=== PATIENT | female | born 1965 | race Caucasian/White ===

== ENCOUNTER 2023-07-17 08:53 | Emergency (ER) | payer BC, SELFPAY ==
[2023-07-17 09:06] VITALS: BP 179/113; PULSE 74; RESP 18; TEMP 36.9; O2SAT 98; BMI 30.2
--- NOTE | 2023-07-17 09:11 | DI.RAD.S_ITS ---
PROCEDURE: XR FOREARM LT 2V INDICATIONS: fall TECHNIQUE: 2 views of the forearm were acquired. COMPARISON: None. FINDINGS: Bones: No displaced fracture of the radial or ulnar shafts. Wrist and elbow findings are separately dictated. Soft tissues: No suspicious calcifications. IMPRESSION: No acute displaced fracture of the radial shaft or ulnar shaft. If there is high concern for occult injury, consider repeat radiography or cross-sectional imaging. Wrist and elbow findings are separately dictated Dictated by: Amrit Fajardo M.D. on 07/17/2023 at 9:39 Approved by: Amrit Fajardo M.D. on 07/17/2023 at 9:40
--- NOTE | 2023-07-17 09:12 | DI.RAD.S_ITS ---
PROCEDURE: XR WRIST LT MIN 3V INDICATIONS: fall TECHNIQUE: 4 views of the wrist were acquired. COMPARISON: None. FINDINGS: Bones: No acute displaced fracture. Mild degenerative changes at the STT and 1st CMC joints. No aggressive features within the small lucent lesions of the lunate and capitate, possibly geodes or bone cysts. Small age-indeterminate bone fragment adjacent to the base of the 1st metacarpal. Soft tissues: No suspicious calcifications elsewhere. IMPRESSION: Mild degenerative changes. No acute displaced fracture or dislocation. If there is high concern for occult injury, consider repeat radiography or cross-sectional imaging. Dictated by: Amrit Fajardo M.D. on 07/17/2023 at 9:40 Approved by: Amrit Fajardo M.D. on 07/17/2023 at 9:42
--- NOTE | 2023-07-17 09:12 | DI.RAD.S_ITS ---
PROCEDURE: XR ELBOW LT MIN 3V INDICATIONS: fall TECHNIQUE: 3 views of the elbow were acquired. COMPARISON: None. FINDINGS: Bones: Minimally displaced radial head/neck fracture. Mild degenerative changes. Soft tissues: Joint effusion is present. IMPRESSION: Minimally displaced radial head/neck fracture. Dictated by: Amrit Fajardo M.D. on 07/17/2023 at 9:46 Approved by: Amrit Fajardo M.D. on 07/17/2023 at 9:46
[2023-07-17 10:43] VITALS: BP 169/82; PULSE 76; O2SAT 98
--- NOTE | 2023-07-17 11:01 | ED_ITS ---
HPI - Extremity Injury (Upper) <Margaret Ayon PA-C - Last Filed: 07/17/23 13:10> General Chief Complaint: Extremity Injury, Upper Stated Complaint: fall, L arm/head injury, passed out Time Seen by Provider: 07/17/23 10:56 Source: patient Mode of arrival: Family Vehicle History of Present Illness HPI narrative: 58-year-old woman presents with concern for left elbow pain and reduced range of motion of the arm after a fall last night at 1:30 a.m.. Patient states that she was walking into the kitchen and it was dark she slipped on some CT vomit on the hard floor and flipped backwards landing on her elbow and hitting her head. She says she lost consciousness briefly immediately after hitting her head. Initially when she came to she noted pain in the top and back of her head where it hit the floor but over the next few hours after working to clean up the cat vomit she realized her left elbow was also very painful and by this morning she felt she could not move her arm normally because of the pain and swelling. She says she has tingling in her fingers on the affected side and feels her [employer] is almost gone. She denies any previous fractures to this arm. She denies any vomiting since hitting her head, any neck pain any numbness or tingling of the right arm or lower extremities, endorses a mild persistent headache but denies vision change or any other symptoms. Related Data Previous Rx's Medication Instructions Recorded hydrocodone 10 mg-acetaminophen 1 tab PO Q8H PRN pain 3 days #9 07/17/23 325 mg tablet tabs ondansetron 4 mg disintegrating 4 mg PO Q6H PRN nausea and 07/17/23 tablet vomiting 7 days #21 tabs Review of Systems <Margaret Ayon PA-C - Last Filed: 07/17/23 13:10> Review of Systems Narrative: See HPI Patient History <Margaret Ayon PA-C - Last Filed: 07/17/23 13:10> Social History Smoking Status: Current every day smoker Smoking Status: Current every day smoker tobacco type: cigarettes alcohol intake frequency: 0-2 drinks per day Substance Use Type: does not use Exam <Margaret Ayon PA-C - Last Filed: 07/17/23 13:10> Narrative Exam Narrative: GENERAL: 58 year old patient appears stated age. Well-developed patient, in mild distress. HEAD: Atraumatic. Normocephalic. EYES: Pupils equal round and reactive. Extraocular motions intact. No scleral icterus. No injection or drainage. ENT: Nose without bleeding, purulent drainage. Throat without erythema, tonsillar hypertrophy or exudate. Uvula midline. Airway patent. NECK: Trachea midline. Non tender CARDIOVASCULAR: Regular rate and rhythm without murmurs, gallops, or rubs. RESPIRATORY: Clear to auscultation. Breath sounds equal bilaterally. No wheezes, rales, or rhonchi. GASTROINTESTINAL: Abdomen soft, non-tender, nondistended. EXTREMITIES: Significant tenderness over the radial head and soft tissues around the elbow, tenderness of the proximal radius. Extremely reduced range of motion at the elbow and wrist 2nd to pain. Sensation is intact. Strong radial pulse, capillary refill less than 2 seconds, skin is pink. Some muscle tightness and tenderness of the trapezius and deltoid no bony tenderness of the shoulder or proximal humerus. No edema or joint tenderness. BACK: C-spine nontender without deformity or step-offs. Otherwise soine is Nontender without deformity or crepitance. No flank tenderness. NEURO: AOx3. Cranial nerves 2-12 intact SKIN: No rash or erythema of visible areas Initial Vital Signs Initial Vital Signs: Vital Signs Temperature 98.5 F 07/17/23 09:06 Pulse Rate 74 07/17/23 09:06 Respiratory Rate 18 07/17/23 09:06 Blood Pressure 179/113 H 07/17/23 09:06 Pulse Oximetry 98 07/17/23 09:06 Oxygen Delivery Method Room Air 07/17/23 09:06 <Yeimi Mora DO - Last Filed: 07/18/23 08:43> Initial Vital Signs Initial Vital Signs: Vital Signs Temperature 98.5 F 07/17/23 09:06 Pulse Rate 74 07/17/23 09:06 Respiratory Rate 18 07/17/23 09:06 Blood Pressure 179/113 H 07/17/23 09:06 Pulse Oximetry 98 07/17/23 09:06 Oxygen Delivery Method Room Air 07/17/23 09:06 Scores <Margaret Ayon PA-C - Last Filed: 07/17/23 13:10> [place] CT Head Rule Age <16 years old: No Patient on blood thinners: No Seizure after injury: No Exclusion: Patient NOT Excluded, Proceed to next steps GCS < 15 at 2 hr post trauma: No Suspected open or depressed skull fracture: No Any sign of basilar skull fracture (hemotympanum, raccoon eyes, Delatorre's sign, CSF benedicto-/rhinorrhea): No Two or more episodes of vomiting: No Age greater or equal to 65 years: No Retrograde amnesia to the event greater or equal to 30 min: No Dangerous Mechanism (pedestrian vs. mv, occupant ejected from mv, fall from >3 ft or > 5 stairs): No Recommendation: CT unnecessary <Yeimi Mora DO - Last Filed: 07/18/23 08:43> [place] CT Head Rule Exclusion: Patient NOT Excluded, Proceed to next steps Recommendation: CT unnecessary Course <Margaret Ayon PA-C - Last Filed: 07/17/23 13:10> Course Course Narrative: At time of discharge patient endorsed she feels her headache has been worsening, RN noted that she is hypertensive to 188 systolic this is atypical for her. Her elbow pain is improved after splinting and being in the sling as well as hyd rocodone this with the persistent head pain and hypertension less likely due to pain, patient also now stating she has difficulty remembering what day it is. She did have a great memory of the events leading up to her fall this morning and since, however given these symptoms will pursue head C and cervical spine non-contrast. 1220 Orders Ordered: Discontinued Medications Hydrocodone Bitart/Acetaminophen (Hydrocodone/Acet 10/325 Tablet) 1 tab PO NOW ONE Stop: 07/17/23 11:15 Last Admin: 07/17/23 11:33 Dose: 1 tab Documented By: TAVO Ondansetron HCl (Ondansetron 4 Mg Odt) 4 mg SL NOW ONE Stop: 07/17/23 11:15 Last Admin: 07/17/23 11:35 Dose: Not Given Documented By: TAVO Vital Signs Vital signs: Vital Signs - 8 hr 07/17/23 09:06 07/17/23 10:43 Temperature 98.5 F Pulse Rate 74 76 Respiratory Rate 18 Blood Pressure 179/113 H 169/82 H Pulse Oximetry 98 98 Oxygen Delivery Method Room Air Room Air <Yeimi Mora DO - Last Filed: 07/18/23 08:43> Orders Ordered: Discontinued Medications Hydrocodone Bitart/Acetaminophen (Hydrocodone/Acet 10/325 Tablet) 1 tab PO NOW ONE Stop: 07/17/23 11:15 Last Admin: 07/17/23 11:33 Dose: 1 tab Documented By: TAVO Ondansetron HCl (Ondansetron 4 Mg Odt) 4 mg SL NOW ONE Stop: 07/17/23 11:15 Last Admin: 07/17/23 11:35 Dose: Not Given Documented By: TAVO Vital Signs Vital signs: Vital Signs - 8 hr 07/17/23 09:06 07/17/23 10:43 Temperature 98.5 F Pulse Rate 74 76 Respiratory Rate 18 Blood Pressure 179/113 H 169/82 H Pulse Oximetry 98 98 Oxygen Delivery Method Room Air Room Air MDM - Extremity Injury (Upper) <Margaret Ayon PA-C - Last Filed: 07/17/23 13:10> Differential Diagnosis Differential diagnosis: Likely other (Proximal radial fracture, elbow sprain, strain, concussion, closed head injury) Imaging Data Extremity x-ray #1: My Impression: Agree with Radiology interpretation Radiologist's Impression: [address] [address] XRay Report Signed Patient: Maggie Coughlin MR#: [id number] : 1965 Acct:[id number] Age/Sex: 58 / F Date of Service: 07/17/23 Loc: ED Accession Number: [id number] Procedure: XR elbow LT min 3V Ordering Provider: Yeimi Mora D.O. PROCEDURE: XR ELBOW LT MIN 3V INDICATIONS: fall TECHNIQUE: 3 views of the elbow were acquired. COMPARISON: None. FINDINGS: Bones: Minimally displaced radial head/neck fracture. Mild degenerative changes. Soft tissues: Joint effusion is present. IMPRESSION: Minimally displaced radial head/neck fracture. Dictated by: Armit Fajardo M.D. on 07/17/2023 at 9:46 Approved by: Amrit Fajardo M.D. on 07/17/2023 at 9:46 Extremity x-ray #2: My Impression: Agree with Radiology interpretation Radiologist's Impression: [address] [address] XRay Report Signed Patient: Maggie Coughlin MR#: [id number] : 1965 Acct:[id number] Age/Sex: 58 / F Date of Service: 07/17/23 Loc: ED Accession Number: [id number] Procedure: XR forearm LT 2V Ordering Provider: Yeimi Mora D.O. PROCEDURE: XR FOREARM LT 2V INDICATIONS: fall TECHNIQUE: 2 views of the forearm were acquired. COMPARISON: None. FINDINGS: Bones: No displaced fracture of the radial or ulnar shafts. Wrist and elbow findings are separately dictated. Soft tissues: No suspicious calcifications. IMPRESSION: No acute displaced fracture of the radial shaft or ulnar shaft. If there is high concern for occult injury, consider repeat radiography or cross-sectional imaging. Wrist and elbow findings are separately dictated Dictated by: Amrit Fajardo M.D. on 07/17/2023 at 9:39 Approved by: Amrit Fajardo M.D. on 07/17/2023 at 9:40 Extremity x-ray #3: My Impression: Agree with Radiology interpretation Radiologist's Impression: [address] [address] XRay Report Signed Patient: Maggie Coughlin MR#: [id number] : 1965 Acct:[id number] Age/Sex: 58 / F Date of Service: 07/17/23 Loc: ED Accession Number: [id number] Procedure: XR wrist LT min 3V Ordering Provider: Yeimi Mora D.O. PROCEDURE: XR WRIST LT MIN 3V INDICATIONS: fall TECHNIQUE: 4 views of the wrist were acquired. COMPARISON: None. FINDINGS: Bones: No acute displaced fracture. Mild degenerative changes at the STT and 1st CMC joints. No aggressive features within the small lucent lesions of the lunate and capitate, possibly geodes or bone cysts. Small age-indeterminate bone fragment adjacent to the base of the 1st metacarpal. Soft tissues: No suspicious calcifications elsewhere. IMPRESSION: Mild degenerative changes. No acute displaced fracture or dislocation. If there is high concern for occult injury, consider repeat radiography or cross-sectional imaging. Dictated by: Amrit Fajardo M.D. on 07/17/2023 at 9:40 Approved by: Amrit Fajardo M.D. on 07/17/2023 at 9:42 CT - cervical spine: My Impression: agree with Radiology interpretation Radiologist's Impression: [address] [address] [address] Scan Report Signed Patient: Maggie Coughlin MR#: [id number] : 1965 Acct:[id number] Age/Sex: 58 / F Date of Service: 07/17/23 Loc: ED Accession Number: [id number] Procedure: CT cervical spine wo con Ordering Provider: Margaret Ayon P.A-C PROCEDURE: CT CERVICAL SPINE WO CON INDICATIONS: head injury, worsening BUNCH/HTN TECHNIQUE: Noncontrast 3 mm thick sections acquired from the skull base to the T4 level. Sagittal and coronal reformats were then constructed. For radiation dose reduction, the following was used: automated exposure control, adjustment of mA and/or kV according to patient size. COMPARISON: None. FINDINGS: Image quality: Excellent. Bones: No fractures or dislocations. Visualized superior ribs are intact. Moderate disc height loss at C4-5, C5-6 and C6-7. Bulky posterior marginal osteophyte of C7 causing moderate spinal canal narrowing and effacement of the spinal canal. Grade 1 anterolisthesis of C4 on C5 secondary to facet arthrosis. Diffuse facet arthrosis. Soft tissues: Prevertebral soft tissues are normal in thickness. No paraverteb ral hematomas. No apical pneumothoraces. IMPRESSION: No displaced fracture or traumatic subluxation. Multilevel degenerative disc disease and diffuse facet arthrosis. Of note, there is moderate spinal canal narrowing and effacement of the spinal cord at C7 due to a bulky posterior marginal osteophyte. Dictated by: Wu Platt M.D. on 07/17/2023 at 12:46 Approved by: Wu Platt M.D. on 07/17/2023 at 12:50 CT scan - head: My Impression: Agree with Radiology interpretation Radiologist's Impression: [address] [address] [address] Scan Report Signed Patient: Maggie Coughlin MR#: [id number] : 1965 Acct:[id number] Age/Sex: 58 / F Date of Service: 07/17/23 Loc: ED Accession Number: [id number] Procedure: CT head/brain wo con Ordering Provider: Margaret Ayon P.A-C PROCEDURE: CT HEAD/BRAIN WO CON INDICATIONS: persistent now severe headache/HTN/ head injury TECHNIQUE: Noncontrast 4.5 mm thick angled axial sections acquired from the foramen magnum to the vertex, with coronal and sagittal reformats. For radiation dose reduction, the following was used: automated exposure control, adjustment of mA and/or kV according to patient size. COMPARISON: None. FINDINGS: Image quality: Diagnostic. CSF spaces: Basal cisterns are patent. No extra-axial fluid collections. Ventricles are normal in size and shape. Brain: No midline shift. No intracranial masses or hemorrhage. White-white matter interface is normal. Skull and face: Calvarium and visualized facial bones are intact, without suspicious lesions. Sinuses: Visualized sinuses and mastoids are clear. IMPRESSION: No acute intracranial pathology. Dictated by: Wu Platt M.D. on 07/17/2023 at 12:51 Approved by: Wu Platt M.D. on 07/17/2023 at 12:54 MDM Narrative Medical decision making narrative: This is a 58-year-old woman who is not on blood thinners who had a fall from standing slipping landing on her back hitting her left elbow/arm and back of her head this morning at 1:30 a.m.. She has not unremarkable neuro exam and head CT is not indicated based on [place] head CT rules. She has no neck pain tenderness step-offs or deformity and CT neck is also not pursued. She does have significant left elbow pain which is what she presents to the ER for today, x-rays of wrist forearm and elbow obtained showing a mildly displaced radial head fracture. Patient was placed in a Orthoglass long-arm splint and sling at nearly 90? however is unable to obtain 90? due to significant pain and discomfort despite receiving hydrocodone. Consult to Orthopedics. Patient will need ortho follow-up outpatient. Short course prescription for hydrocodone and patient advised to take Tylenol ibuprofen for pain elevate wear the sling until her appointment. She and her are also counseled regarding monitoring for symptoms suggestive of bleed or significant head injury. Suspect she may have a mild concussion due to LOC and mild persistent headache today. Ultimately did perform a head and neck noncontrast CT as patient was tearful stating she had difficulty remembering the day and persistent headache as well as hypertensive at time of discharge. Discussed again with the patient and her and they strongly preferred head CT I think this is reasonable given patient's age nearly 59 LOC of unknown specific duration and persistent headache with report of some memory issues. These returned unremarkable. Return precautions provided, follow-up plan discussed, all questions answered. Discharge Plan Departure Patient Disposition: Home Clinical Impression: Closed fracture of radial head Qualifiers: Encounter type: initial encounter Fracture alignment: displaced Laterality: left Qualified Code(s): S52.122A - Displaced fracture of head of left radius, initial encounter for closed fracture Concussion Qualifiers: Encounter type: initial encounter Loss of consciousness presence/duration: with LOC of 30 min or less Qualified Code(s): S06.0X1A - Concussion with loss of consciousness of 30 minutes or less, initial encounter Instructions: DI for Elbow Fracture Activity Restrictions/Additional Instructions: *You have been diagnosed with [proximal head radius fracture mildly displaced] *What to do: *Please continue to take your regular medications as directed. [ 2] New medication prescriptions sent to your pharmacy: [Hydrocodone, Zofran] [ ] New medication written as a paper prescription [ ] No new medications given *Please follow up with your primary care provider in 2-3 days, call for an appointment. Let them know you were seen in the Emergency Department and that we ask that you be seen in follow up. We will electronically transmit a record of today's note if your PCP is in our system. Your x-ray today shows a subtle fracture in the radial head which is the very beginning of the forearm bone that goes down to the thumb side of your wrist, you were placed in a long arm splint today this needs to stay dry you will need to use a bag to shower or take baths and avoid getting the area wet. We also placed you in a sling for support for your arm. You should follow up closely with Orthopedics in the next 2-5 days ideally. Tylenol and ibuprofen for pain keep the area elevated you can rest it on a pillow when you are in bed or seated. Or find best position of comfort for you. I did prescribe a few days of stronger pain medicine that you can take if needed. As well as some antinausea medicine as sometimes people feel nauseous when they take opioid pain medicines. Regarding your head injury I suspect he has a mild concussion given he had loss of consciousness and persistent headache today, we did ultimately do a CT scan as you had a higher blood pressure when we are getting ready to discharge you and were complaining of a persistent headache. This scan was normal there is no evidence of bleeding we also did a scan of your cervical spine/neck which also looked fine. But if you do develop any new concerning symptoms over the next 2 days to 2 weeks including persistent dizziness lightheadedness vision change difficulty walking vomiting severe heada sharon or other symptoms of concern please make sure you seek re-evaluation immediately. The contact info for Dr. Hernandez whom your family has seen previously and our on-call Dr. Haley are below in your paperwork. You will need to reach out to their office. *If you do not have a primary care provider please contact the [facility] Resource line at [phone]. They will ask some questions about your medical history and help get you set up with a doctor in the community. *Return to Emergency Department if you should have any new, worsening or concerning symptoms, such as [fever greater than 101 F, shaking chills, worsening pain, persistent vomiting or other bothersome symptoms] Prescriptions: New ondansetron 4 mg tablet,disintegrating 4 mg PO Q6H PRN (Reason: nausea and vomiting) 7 Days Qty: 21 0RF hydrocodone-acetaminophen 10-325 mg tablet 1 tab PO Q8H PRN (Reason: pain) 3 Days Qty: 9 0RF Referrals: Filiberto Haley MD [Physician] - (radial head fx) Alfonso Hernandez MD [Physician] - (radial head fx (family has seen David previously, possible preference )) Stand Alone Forms: Patient Portal/API ED Sign-out <Yeimi Mora DO - Last Filed: 07/18/23 08:43> Cosign ED Attending Cosvalorieature Attestation: I was available for consultation.
[2023-07-17] MEDS: HYDROCODONE/ACET 10/325 TABLET 1 TAB PO (11:33)
--- NOTE | 2023-07-17 11:37 | PC.NURSE ---
Patient was able to tolerate some movement of the affected ext prior to medication. During the application of the splint she became tearful. The limb was supported by the provider while the nurse went to get the pain medication. Patient was given time for medication to set in in before attempting to finish the procedure.
--- NOTE | 2023-07-17 12:00 | PC.NURSE ---
patient was placed in a sling and tolerated the procedure well. She report comfort in her sling. provider okaayed the sling and splint fit and position.
--- NOTE | 2023-07-17 12:18 | DI.CT.S_ITS ---
PROCEDURE: CT CERVICAL SPINE WO CON INDICATIONS: head injury, worsening BUNCH/HTN TECHNIQUE: Noncontrast 3 mm thick sections acquired from the skull base to the T4 level. Sagittal and coronal reformats were then constructed. For radiation dose reduction, the following was used: automated exposure control, adjustment of mA and/or kV according to patient size. COMPARISON: None. FINDINGS: Image quality: Excellent. Bones: No fractures or dislocations. Visualized superior ribs are intact. Moderate disc height loss at C4-5, C5-6 and C6-7. Bulky posterior marginal osteophyte of C7 causing moderate spinal canal narrowing and effacement of the spinal canal. Grade 1 anterolisthesis of C4 on C5 secondary to facet arthrosis. Diffuse facet arthrosis. Soft tissues: Prevertebral soft tissues are normal in thickness. No paravertebral hematomas. No apical pneumothoraces. IMPRESSION: No displaced fracture or traumatic subluxation. Multilevel degenerative disc disease and diffuse facet arthrosis. Of note, there is moderate spinal canal narrowing and effacement of the spinal cord at C7 due to a bulky posterior marginal osteophyte. Dictated by: Wu Platt M.D. on 07/17/2023 at 12:46 Approved by: Wu Platt M.D. on 07/17/2023 at 12:50
--- NOTE | 2023-07-17 12:18 | DI.CT.S_ITS ---
PROCEDURE: CT HEAD/BRAIN WO CON INDICATIONS: persistent now severe headache/HTN/ head injury TECHNIQUE: Noncontrast 4.5 mm thick angled axial sections acquired from the foramen magnum to the vertex, with coronal and sagittal reformats. For radiation dose reduction, the following was used: automated exposure control, adjustment of mA and/or kV according to patient size. COMPARISON: None. FINDINGS: Image quality: Diagnostic. CSF spaces: Basal cisterns are patent. No extra-axial fluid collections. Ventricles are normal in size and shape. Brain: No midline shift. No intracranial masses or hemorrhage. White-white matter interface is normal. Skull and face: Calvarium and visualized facial bones are intact, without suspicious lesions. Sinuses: Visualized sinuses and mastoids are clear. IMPRESSION: No acute intracranial pathology. Dictated by: Wu Platt M.D. on 07/17/2023 at 12:51 Approved by: Wu Platt M.D. on 07/17/2023 at 12:54
--- NOTE | 2023-07-17 12:20 | PC.NURSE ---
the patient's states that he wished for the patient to have a head CT because she bleeds more easily than usual. The provider assessed the patient and found that she was not a candidate for a head CT at that time. The patient has had a headache since the accident and was having a hard time recalling the date at discharge. She also had a blood pressure of 188/83 at discharge despite saying her headache went away with the pain medication. She became tearful at not being able to remember the date. expressed concern again for getting imaging of her head. Provider made aware of the changes. Patient was ordered imaging of her head.
[2023-07-17 13:16] VITALS: BP 154/86; PULSE 74; RESP 18; O2SAT 99
== END 2023-07-17 13:17 | disposition home or self-care (01) ==
PROVIDERS: Emergency Provider Student in an Organized Health Care Education/Training Program
DX: S06.0X1A Concussion with loss of consciousness of 30 minutes or less, initial encounter (principal); S52.122A Displaced fracture of head of left radius, initial encounter for closed fracture; W01.0XXA Fall on same level from slipping, tripping and stumbling without subsequent striking against object, initial encounter
CPT/HCPCS: 29105; 70450; 72125; 73080; 73090; 73110; 99283; 99284